=== PATIENT | male | born 1950 | race Caucasian/White ===

== ENCOUNTER 2019-06-23 10:38 | Outpatient (CLI) | payer OTHER ==
[~2019-06-23 10:38] MED LIST: CARV12.548 GT; IBUP100T8 GT; LOSA100T3 GT; PANT20TA2 PO; SIMV40TA5 GT
== END 2019-06-24 20:17 | disposition home or self-care (01) ==
LOC: SRD 10:38
DX: Z01.818 Encounter for other preprocedural examination (principal); M17.12 Unilateral primary osteoarthritis, left knee
CPT/HCPCS: 71046-TC

== ENCOUNTER 2020-07-26 08:05 | Outpatient (CLI) | payer OTHER ==
[~2020-07-26 08:05] MED LIST changes: +SIMV-46 GT; -SIMV40TA5 GT
== END 2020-07-26 20:31 | disposition home or self-care (01) ==
LOC: SRD 08:05
DX: R05 Cough (principal)
CPT/HCPCS: 71046-TC

== ENCOUNTER 2022-05-03 10:41 | Emergency (ER) | payer OTHER, MEDICAID ==
[~2022-05-03] VITALS: Ht 170.2 cm; Wt 67.1 kg
[2022-05-03 11:30] VITALS: BP_SYST 163
--- NOTE | 2022-05-03 11:40 | NUR ---
BROUGHT BACK TO BED #4 AND WILL ASSUME CARE
--- NOTE | 2022-05-03 12:00 | NUR ---
72 YEAR OLD MALE C/O BACK, NECK, HEAD, AND BUTTOCK PAIN S/P MECHANICAL FALL OVER A BUCKET. DENIES K.O. DENIES TAKING BLOODTHINNERS. PT STATES HAD BACK SURGERY 8 MONTHS AGO. PT RATES PAIN 11/29. PT OBTAINED ABRASION ON BACK OF HEAD, BLEEDING CONTROLLED.
--- NOTE | 2022-05-03 12:15 | NUR ---
DR CORTEZ AT BEDSIDE.
--- NOTE | 2022-05-03 12:40 | NUR ---
TAKEN TO RADIOLOGY FOR TESTING VIA WHEELCHAIR
--- NOTE | 2022-05-03 14:39 | NUR ---
Patient given written and verbal discharge instructions and verbalizes understanding. ER MD discussed with patient the results and treatment provided. Patient in stable condition. ID arm band removed. Rx of NONE given. Patient educated on pain management and to follow up with PMD. Pain Scale 0/10. Opportunity for questions provided and answered. Medication side effect fact sheet provided.
== END 2022-05-03 14:39 | disposition home or self-care (01) ==
LOC: SED 10:41
DX: S13.4XXA Sprain of ligaments of cervical spine, initial encounter (principal); S39.012A Strain of muscle, fascia and tendon of lower back, initial encounter; S00.01XA Abrasion of scalp, initial encounter; E11.9 Type 2 diabetes mellitus without complications; I10 Essential (primary) hypertension; Z79.899 Other long term (current) drug therapy; W01.0XXA Fall on same level from slipping, tripping and stumbling without subsequent striking against object, initial encounter; Y93.89 Activity, other specified; Y92.89 Other specified places as the place of occurrence of the external cause; Y99.8 Other external cause status
CPT/HCPCS: 70450-TC; 72100-TC; 72125-TC; 76376; 99284

== ENCOUNTER 2022-11-07 08:10 | Outpatient (CLI) | payer OTHER, MEDICAID ==
[~2022-11-07 08:10] MED LIST changes: -LOSA100T3 GT; +LOSA100T4 GT
== END 2022-11-07 19:51 | disposition short-term general hospital (02) ==
LOC: SRD 08:10
PROVIDERS: ATTEND Internal Medicine
DX: R06.02 Shortness of breath (principal)
CPT/HCPCS: 71046-TC

== ENCOUNTER 2023-04-05 10:07 | Outpatient (CLI) | payer OTHER, MEDICAID ==
[~2023-04-05 10:07] MED LIST changes: +LOSA-415 GT; -LOSA100T4 GT
== END 2023-04-05 19:28 | disposition home or self-care (01) ==
LOC: SRD 10:07
PROVIDERS: ATTEND Orthopaedic Surgery
DX: M17.0 Bilateral primary osteoarthritis of knee (principal); M11.262 Other chondrocalcinosis, left knee; M11.261 Other chondrocalcinosis, right knee; M25.462 Effusion, left knee; M25.561 Pain in right knee; M25.562 Pain in left knee

== ENCOUNTER 2023-12-29 13:03 | Emergency (ER) | payer OTHER, MEDICAID ==
[~2023-12-29] VITALS: Ht 165.1 cm; Wt 63.5 kg
[2023-12-29 13:39] VITALS: BP_SYST 106; PULSE 87; RESP 16; TEMP 99.9; O2SAT 97
[2023-12-29] MEDS ORDERED: ONDANSETRON 4 MG ODT TAB PO ONE (14:30)
[2023-12-29 15:04] LABS: BASOPHILS # (AUTO) 0.2 K/uL (0.0-0.2); BASOPHILS % (AUTO) 1.9 % (0.0-2.0); EOSINOPHILS % (AUTO) 0.3 % (0.0-4.0); HEMATOCRIT 40.2 % (36-54); HEMOGLOBIN 13.6 g/dL (14.0-18.0); LYMPHOCYTES # (AUTO) 0.3 K/uL (1.0-5.5); LYMPHOCYTES % (AUTO) 2.6 % (20.5-51.5); MEAN CORPUSCULAR HEMOGLOBIN 30 pg (27-31); MEAN CORPUSCULAR HGB CONC 34 % (32-36); MEAN CORPUSCULAR VOLUME 89 fL (79.0-98.0); MONOCYTES # (AUTO) 0.8 K/uL (0.0-1.0); MONOCYTES % (AUTO) 6.2 % (1.7-9.3); NEUTROPHILS # (AUTO) 11.4 K/uL (1.8-7.7); PLATELET COUNT (AUTO) 166 K/uL (130-430); RED BLOOD CELL COUNT(AUTO) 4.54 MIL/uL (4.2-6.2); RED CELL DISTRIBUTION WIDTH 14.7 % (9.0-15.0); WHITE BLOOD COUNT (AUTO) 12.8 K/uL (4.8-10.8)
[2023-12-29 15:20] LABS: ALANINE AMINOTRANSFERASE 21 U/L (12-78); ALBUMIN 4.3 g/dL (3.4-4.8); ANION GAP 14 (5-15); ASPARTATE AMINOTRANSFERASE 20 U/L (10-37); BILIRUBIN,DIRECT 0.2 mg/dL (0.0-0.3); CALCIUM 9.7 mg/dL (8.4-11.0); CARBON DIOXIDE 21 mmol/L (23-29); CHLORIDE 99 mmol/L (98-107); GLUCOSE 123 mg/dL (74-106); LIPASE 23 U/L (16-77); POTASSIUM 3.9 mmol/L (3.5-5.1); SODIUM SERUM 134 mmol/L (136-145); TOTAL BILIRUBIN 1.1 mg/dL (0.0-1.0); TOTAL PROTEIN, SERUM 8.2 g/dL (6.4-8.3); UREA NITROGEN, BLOOD 36 mg/dL (8-21)
== END 2023-12-29 15:14 | disposition left against medical advice (07) ==
LOC: SED 13:03
DX: R11.10 Vomiting, unspecified (principal); Z53.21 Procedure and treatment not carried out due to patient leaving prior to being seen by health care provider
CPT/HCPCS: 36415; 80048; 80076; 83690; 85025